=== PATIENT | female | born 2000 | race African-American/Black ===

== ENCOUNTER 2019-11-21 08:17 | Day surgery (SDC) | payer MEDICAID, SELFPAY ==
[2019-11-19 19:51] VITALS: BMI 34.9
--- NOTE | 2019-11-21 | FL_ITS ---
EXAMINATION: XR LUMBAR PUNCTURE CLINICAL INFORMATION: Headache. Evaluate for pseudotumor cerebri COMPARISON: None TECHNIQUE/findings: Procedure and risks and benefits including bleeding, infection and headache were discussed with the patient and informed consent was obtained. Patient was positioned in the prone position.. The back was prepped and draped in the usual sterile fashion. Skin and soft tissues of the left lower back was prepped and draped in the usual sterile fashion. Fluoroscopic guidance and a 22-gauge spinal needle, left-sided interlaminar access at the L2-L3 level was obtained. Opening pressure was 32.7 cm water. 14.5 mL of clear CSF fluid was removed. Closing pressure was 18 cm water. Diagnostic specimen was sent. FLUOROSCOPY TIME: 0.4 minutes DOSE AREA PRODUCT: 4.7 capps per centimeter squared. Total dose 20 mgy. 1 saved fluoroscopic image. IMPRESSION: Fluoroscopy-guided lumbar puncture. Elevated opening pressure of 32.7 cm of water.
[2019-11-21 09:00] VITALS: BP 115/67; PULSE 78; RESP 18; TEMP 36.1; O2SAT 98
[2019-11-21 10:15] LABS: MANUAL DIFF FLAG NO
[2019-11-21 10:22] LABS: Basophils Absolute Auto 0.1 X10*3/uL (0.0-0.2); Basophils Percent Auto 0.6 % (0-2); Eosinophils Absolute Auto 0.4 X10*3/uL (0.0-0.4); Eosinophils Percent Auto 5.1 % (0-4); Hematocrit 36.5 % (37-47); Hemoglobin 11.8 g/dl (12.0-16.0); Imm Gran Abs Auto 0.03 X10*3/uL (0.00-0.03); Imm Gran Pct Auto 0.3 % (0.0-0.4); Lymphocytes Absolute Auto 3.8 X10*3/uL (1.2-4.9); Lymphocytes Percent Auto 43.2 % (20-40); Mean Corpuscular HGB Conc 32.3 g/dl (31.0-35.0); Mean Corpuscular Hemoglobin 26.2 pg (27.0-33.0); Mean Corpuscular Volume 81.1 fL (80-98); Mean Platelet Volume 9.4 fL (9.4-12.3); Monocytes Absolute Auto 0.6 X10*3/uL (0.1-1.2); Monocytes Percent Auto 7.4 % (2-11); Neutrophils Absolute Auto 3.8 X10*3/uL (2.0-8.3); Neutrophils Percent Auto 43.4 % (45-73); Platelet Count 340 X10*3/uL (160-400); Red Cell Distribution Width 13.9 % (11.0-16.0); White Blood Count 8.7 X10*3/uL (4.8-10.8)
[2019-11-21 10:31] LABS: Partial Thromboplastin Time 35.9 SEC (24.1-38.0)
--- NOTE | 2019-11-21 12:37 | HO.RADPN ---
RADIOLOGY Narrative Narrative: LP performed using 22g spinal needle at L3/L4. Opening pressure 32.7 ml h2o. Closing pressure 18.5 cm h2o. 14.5 ml clear CSF removed.
[2019-11-21 12:45] VITALS: BP 116/77; PULSE 65; RESP 18; TEMP 36.9; O2SAT 98
[2019-11-21 13:15] VITALS: BP 109/69; PULSE 66; RESP 18; O2SAT 99
[2019-11-21 13:45] VITALS: BP 107/70; PULSE 76; RESP 18; O2SAT 100
[2019-11-21 13:56] LABS: Appearance CSF CLEAR; CSF Monos 0 %; CSF Other Cells % 0 %; CSF Tube # 3; CSF Volume 3.5 ML; Color CSF COLORLESS; Lymphocytes CSF 100 %; Neutrophils CSF 0 %; Red Blood Cell CSF 0 MM*3; White Blood Cell CSF 2 MM*3
[2019-11-21 13:58] LABS: Glucose CSF 61 mg/dL; Total Protein CSF 14.8 mg/dL (15-45)
[2019-11-21 13:59] LABS: Appearance CSF CLEAR; CSF Tube # 1
[2019-11-21 14:15] VITALS: BP 109/60; PULSE 80; RESP 16; O2SAT 100
[2019-11-21 14:46] VITALS: BP 108/63; PULSE 86; RESP 18; O2SAT 99
== END 2019-11-21 15:14 | disposition home or self-care (01) ==
PROVIDERS: Radiology Diagnostic Radiology; PCP Pediatrics; Visit Provider Psychiatry & Neurology Neurology
PROC: 009U3ZZ Drainage of Spinal Canal, Percutaneous Approach (ICD-10-PCS; CPT 62270; principal; 2019-11-21 10:00)
DX: G93.2 Benign intracranial hypertension (principal); J45.909 Unspecified asthma, uncomplicated; G25.0 Essential tremor; Z88.0 Allergy status to penicillin; Z79.899 Other long term (current) drug therapy
CPT/HCPCS: 36415; 62328; 82945; 84157; 85025; 85610; 85730; 87015; 87070; 87205; 89051

== ENCOUNTER 2025-02-04 03:51 | Emergency (ER) | payer OTHER, SELFPAY ==
--- OUTSIDE RECORDS SUMMARY | 2025-02-03 04:49 | XMS_ITS | Continuity of Care Document ---
Author Organization [facility] ter Address [address] [place] [id number]- Care Team Providers Care Waterproof Bag Sewer Name Role Phone Ben Garcia NP Primary Care Physician [phone] Encounter [facility] Date(s): 02/02/25 - 02/03/[address] [id number]- Discharge Disposition: A-D/C Walkout Attending Physician: Not on Staff, Attending MD Admitting Physician: Not on Staff, Admitting MD Referring Physician: Not on Staff, Referring MD Encounter Type: Disch ES Allergies, Adverse Reactions, Alerts Substance Criticality Severity Reaction Reaction Severity Status amoxicillin vomitting Rash Active penicillin Rash and vomitting Active Grass hives and itching Ac tive Other Environmental Allergy trees-hives and itching Active meloxicam Active Immunizations Given and Recorded Vaccine Date Status Refusal Reason tetanus/diphtheria/pertussis, acel(Tdap) 05/04/22 Given tetanus/diphtheria/pertussis, acel(Tdap) 09/08/10 Recorded Meningococcal Conjugate Vaccine 04/22/18 Recorded Meningococcal Conjugate Vaccine 09/08/10 Recorded influenza virus vaccine, inactivated 10/23/17 Kole rded influenza virus vaccine, inactivated 10/10/16 Kole rded influenza virus vaccine, inactivated 10/31/13 Kole rded Hepatitis A Pediatric Vaccine 10/23/17 Recorded Human Papillomavirus Vaccine 03/02/14 Recorded Human Papillomavirus Vaccine 10/31/13 Recorded Human Papillomavirus Vaccine 08/29/13 Recorded Varicella Virus Vaccine 07/12/09 Recorded Varicella Virus Vaccine 09/01/99 Recorded Poliovirus Vaccine, Inactivated 11/25/02 Recorded Poliovirus Vaccine, Inactivated 02/25/99 Recorded Measles/Mumps/Rubella Virus Vaccine 11/25/02 Recor ded Measles/Mumps/Rubella Virus Vaccine 09/01/99 Recor ded diphtheria/tetanus/pertussis, acel(DTaP) 11/25/02 Recorded diphtheria/tetanus/pertussis, acel(DTaP) 11/28/99 Recorded diphtheria/tetanus/pertussis, acel(DTaP) 02/25/99 Recorded diphtheria/tetanus/pertussis, acel(DTaP) 98 Recorded diphtheria/tetanus/pertussis, acel(DTaP) 98 Recorded hepatitis B pediatric vaccine 09/01/99 Recorded hepatitis B pediatric vaccine 05/13/99 Recorded hepatitis B pediatric vaccine 02/25/99 Recorded Medications Diflucan 150 mg oral tablet See Instructions, 1 tablet By Mouth Once x1, then repeat dose after complete antibiotics, # 2 tablet, 0 Refills, Soft Stop, 12/15/22 9:16:00 AM EST, Tablet, [facility] #[id number], Partial fill upon patient request if the prescription is for a schedule II opioid drug., 167.4, cm, 12/15/22 8:52:00 EST, Height, 95, kg, 11/20/22 14:49:00 EDT, Dry Weight Start Date: 12/15/22 Status: Ordered Medication Dispense Status: Completed Quantity: 2.0 Unit: tablet Total Allowed Fills: 1 Fills Dispensed: 0 Indications: Other specified noninflammatory disorders of vagina; multivitamin with iron Multiple Vitamins with Iron oral tablet 1 tablet, By Mouth, Daily, # 90 tablet, 1 Refills, Maintenance, 01/22/25 10:43:00 AM EST, Tablet, [facility] #[id number], Partial fill upon patient request if the prescription is for a schedule II opioid drug., 1 tablet By Mouth Daily,x90 days, 167.4, cm, 01/22/25 10:19:00 EST, Height Start Date: 01/22/25 Stop Date: 07/21/25 Status: Ordered Medication Dispense Status: Completed Quantity: 90.0 Unit: tablet Total Allowed Fills: 2 Fills Dispensed: 0 right patella stability brace right patella stability brace, See Instructions, # 1 each, Refills 0, Tot. Refills 0, Maintenance, ICD 10: M25.361 length of need 99+ months please fax to [email or web address] 01/22/25 12:28:00 PM EST, Supply Start Date: 01/22/25 Status: Ordered Medication Dispense Status: Completed Quantity: 1.0 Unit: each Total Allowed Fills: 1 Fills Dispensed: 0 Ventolin HFA 108 mcg/inh inhalation aerosol with adapter 1 puffs, Inhalation, Every 6 hours, PRN NEEDED FOR WHEEZING, # 18 Gm, 1 Refills, Maintenance, 12/21/23 12:02:00 PM EST, [facility] #[id number], 167.4, cm, 05/17/23 13:45:00 EDT, Height, 95, kg, 11/20/22 14:49:00 EDT, Dry Weight Start Date: 12/21/23 Status: Ordered Medication Dispense Status: Completed Quantity: 18.0 Unit: g Total Allowed Fills: 1 Fills Dispensed: 0 walker walker, See Instructions, # 1 each, Refills 0, Tot. Refills 0, Maintenance, DX: left knee pain, 07/12/21 3:53:00 PM EDT, Supply Start Date: 07/12/21 Status: Ordered Medication Dispense Status: Completed Quantity: 1.0 Unit: each Total Allowed Fills: 1 Fills Dispensed: 0 Mental Status Mental Status Assessment Assessment Assessment Component Result Effecti ve Date Bertha coma score total 15 Problem List Condition Confirmation Course Effective Dates Status Health St atus Informant Vaginal bleeding, abnormal Confirmed Active Back pain, chronic Confirmed Active Chronic tension type headache Confirmed Active Gastritis Confirmed Active Chronic GERD Confirmed Active Anemia, iron deficiency Confirmed Active Lipoma of back Confirmed Active Chronic pain of right knee Confirmed Active Severe obesity (BMI 35.0-39.9) with comorbidity Confirmed Active Umbilical pain Confirmed Active Vital Signs Most recent to oldest [Reference Range]: 1 2 Height 165 cm (02/02/25 11:15 PM) Weight 96.8 kg (02/02/25 11:15 PM) Oxygen Saturation [94-100 %] 100 % (02/02/25 11:15 PM) 97 % (02/02/25 1:41 PM) Pulse Rate [55-90 bpm] 84 bpm (02/02/25 11:15 PM) 80 bpm (02/02/25 1:41 PM) Body Mass Index [18.5-24.99 kg/m2] 35.56 kg/m2 *H* (02/02/25 11:15 PM) Blood Pressure [90-138/55-84 mm Hg] 115/ 77mm Hg (02/02/25 11:15 PM) 116/58mm Hg (02/02/25 1:41 PM) Respiratory Rate [16-30 br/min] 16 br/mi n (02/02/25 11:15 PM) 18 br/min (02/02/25 1:41 PM) Temperature [96.8-100.4 DegF] 98.4 DegF (02/02/25 11:15 PM) 98.7 DegF (02/02/25 1:41 PM) Mode of Delivery (Oxygen) Room air (02/02/25 11:15 PM) Room air (02/02/25 1:41 PM) Blood pressure sites Arm, left (02/02/25 11:15 PM) Arm, right (02/02/25 1:41 PM) Temperature Route Oral (02/02/25 11:15 PM) Oral (02/02/25 1:41 PM) Dry Weight 96.8 kg (02/02/25 11:15 PM) Weight Obtained Via Standing scale (02/02/25 11:15 PM) Dry Weight Obtained Via Standing scale (02/02/25 11:15 PM) Social History Social History Type Response Smoking Status Never (less than 100 in lifetime) entered on: 07/22/20 Sexual Orientation Self described orien tation: ; Lesbian, tom or homosexual Sex Sex Representation Female (finding) Status Not Patient Care team information Care Team Personnel Name: Ben Garcia NP Position: [facility] Associate Professional Member Role: PCP Address: [address] [place] [address] Telecom: Name: Jolene Marie RN Position: [facility] AMB Nurse Member Role: Primary Care Nurse Care Team Related Persons Name: WILLIAM PALMER Name: AXEL PALMER Insurance Providers Guarantor name: ASTRID PALMER Health Plan Information #: 1 Payer: [employer] Payer Identifier: NA Member Number: [id number] Group Number: NA Subscriber Identifier: [id number] Relationship to Subscriber: self Coverage Type: Self-pay (Includes applicants for insurance and Medicaid applicants) Coverage Verification Date: NA Telecom: NA Address: NA
--- NOTE | ~2025-02-04 | XR_ITS ---
CLINICAL HISTORY: fall 2 view right knee Comparison: None provided Findings: Bones intact. No dislocations. No significant arthritic change or erosions. No joint effusion. No radiopaque foreign body. IMPRESSION: 1. No acute findings. This document has been electronically signed by: Duong Yeung MD on 02/04/2025 05:44:53
[2025-02-04 04:04] VITALS: BP 117/59; PULSE 77; RESP 20; TEMP 36.7; O2SAT 99; BMI 37.1
--- NOTE | 2025-02-04 05:56 | ED.FALL ---
HPI - Fall General Chief Complaint: Fall Stated Complaint: fall Time Seen by Provider: 02/04/25 05:36 Source: patient and family (Aunt) Mode of arrival: ambulatory Limitations: no limitations History of Present Illness ED Provider: Dr. Stuart Juan HPI Narrative: 24-year-old female with a history of anemia, asthma, migraines, dislocation of her knees, arthritis of the knees uses a cane to ambulate who presents emergency department for evaluation of injuries from a slip and fall on icy stairs that occurred yesterday at around 08:00. She was seen at an urgent care, had x-rays of her right knee and back and were told that she had a dislocated knee and disc problem in her back. Patient states that she has had increased pain in her neck, back and lower extremities since the fall. The patient is able to ambulate using a cane without difficulty. She took ibuprofen 800 mg at 01:30 hours with a no relief of her pain. Related Data Home Medications ?Medication ?Instructions ?Recorded ?Confirmed albuterol sulfate 90 mcg/actuation 2 puff inhalation NEEDED 11/19/19 11/19/19 aerosol inhaler (ProAir HFA) linaclotide 72 mcg capsule 72 mcg PO DAILY 11/19/19 11/19/19 (Linzess) promethazine 12.5 mg tablet 12.5 mg PO Q4-6H PRN Nausea 11/19/19 11/19/19 Previous Rx's ?Medication ?Instructions ?Recorded acetaminophen 500 mg tablet 1,000 mg (2 x 500 mg) PO Q6H PRN 02/04/25 (Tylenol Extra Strength) pain #20 tabs ibuprofen 400 mg tablet 400 mg PO TID PRN fever or pain 02/04/25 #30 tabs oxycodone 5 mg tablet 5 mg PO Q6H PRN pain #10 tabs 02/04/25 Allergies Allergy/AdvReac Type Severity Reaction Status Date / Time amoxicillin Allergy Rash Verified 02/04/25 04:07 Review of Systems Review of Systems: Yes all other systems are reviewed and are negative [facility] Past Medical History Medical History (Updated 02/04/25 @ 06:21 by Stuart Juan MD) Colonoscopy planned Back pain Nausea Migraine Asthma Surgical History (Updated 11/19/19 @ 17:01 by Sherri Phillips RN) History of endoscopy (~2018) H/O umbilical hernia repair Social History Social History Advance Directives Date on File: 11/19/19 Physical Exam Vital Signs: Vital Signs: Last Vital Signs Temp 98.0 F 02/04/25 04:04 Pulse 77 02/04/25 04:04 Resp 20 02/04/25 04:04 BP 117/59 L 02/04/25 04:04 Pulse Ox 99 02/04/25 04:04 O2 Del Method Room Air 02/04/25 04:04 BMI result Body Mass Index 37.1 Vital signs were normal Exam: General: Awake, alert in no distress Head: Normocephalic, atraumatic EENT: PERRL, sclera and conjunctiva are normal, mouth with no erythema or exudates Neck: Supple, patient has tenderness palpation of her cervical vertebrae, trapezius muscles bilaterally, no difficulty with range of motion of her neck Lung: breath sounds symmetric, no wheezing, no rales and no rhonchi Chest: symmetric movement, mild tenderness palpation of her right lateral chest wall Heart: regular rate and rhythm, normal S1, S2 no murmurs or rubs Abdomen: soft, non-tender, nondistended, normal bowel sounds Back: no point vertebral tenderness but diffuse tenderness palpation of her vertebrae and muscles of her upper, mid and lower back with no spasm, no CVAT Extremities: no deformities, moves all extremities symmetrically, no edema, the patient is able to walk using her cane without any difficulty Neuro: Awake, alert, oriented, normal speech Psych: Pleasant, cooperative Medical Decision Making Medical Decision Making MDM Narrative: 24-year-old female with a history of anemia, asthma, migraines, dislocation of her knees, arthritis of the knees uses a cane to ambulate who presents emergency department for evaluation of injuries from a slip and fall on icy stairs that occurred yesterday at around 08:00. She was seen at an urgent care, had x-rays of her right knee and back and were told that she had a dislocated knee and disc problem in her back. Patient states that she has had increased pain in her neck, back and lower extremities since the fall. The patient is able to ambulate using a cane without difficulty. She took ibuprofen 800 mg at 01:30 hours with a no relief of her pain. Physical examination did reveal tenderness palpation of her neck, back diffusely, no difficulty with moving her lower extremities or walking with a cane. Differential diagnosis: ?Includes but is not limited to musculoskeletal injury, sprain, strain, right knee fracture Course: X-rays of the patient's right knee revealed no acute findings which is reassuring. Patient's presentation is consistent with musculoskeletal injury/contusion secondary to her fall. I did discuss this with the patient. I did tell her that often pain after a fall gets worse 2-3 days later and can last up to 2 weeks. Patient was prescribed ibuprofen 400 mg q.6 hours PRN, Tylenol 1000 mg q.6 hours PRN and for pain not relieved by these medications she was prescribed oxycodone 5 mg q.6 hours PRN. I told her that she can also take the cyclobenzaprine as prescribed by her urgent care provider. She was advised to apply ice for 15 minutes 4 to 6 times a day for the next 2-3 days to areas that were injured. She was given printed and verbal instructions and discharged home. Differential Diagnosis Differential Diagnoses: The differential diagnosis associated with the presentation includes (See above) Admission/Observation Consideration of admission/observation: Escalation of care including admission/observation considered (No) Radiology Impression Discussion of test interpretation with radiology: I have reviewed the radiologist's reading. Radiologist Impression: 2 view right knee Comparison: None provided Findings: Bones intact. No dislocations. No significant arthritic change or erosions. No joint effusion. No radiopaque foreign body. IMPRESSION: 1. No acute findings. This document has been electronically signed by: Duong Yeung MD on 02/04/2025 05:44:53 Independent Historian Clinical information obtained from an independent historian. History obtained from or confirmed by: Other (Aunt) Prescription Management I considered prescription management with: Pain Medication (I prescribed ibuprofen, Tylenol and oxycodone) Discharge Plan Discharge Clinical Impression: Fall, Fall from slipping on ice, Acute neck sprain, Back contusion, Knee pain, bilateral, Chest wall contusion Patient Disposition: Home, Self-Care Instructions: Contusion in Adults (ED) Additional Instructions: The x-ray of your knee did not reveal any broken bones or dislocations. Please see the radiology reading below. The pain that your experiencing is consistent with your fall. I do not think that you have any broken bones and your pain is caused by contusions (deep bruises) and soft tissue injuries (stretching of tendons and ligaments). It is reassuring that you can walk using your cane, suggesting that you do not have any broken bones in your neck, back or legs. Take ibuprofen 200 mg pills, 3 pills every 6 hours as needed for pain. Take Tylenol (acetaminophen) 500 mg pills, 2 pills every 4-6 hours as needed for pain. For pain not relieved by ibuprofen or Tylenol take oxycodone 5 mg pills, 1 pill every 4 hours as needed for pain. Do not drive or work while taking this medication since they can cause sleepiness. Oxycodone is a narcotic medication that can be addicting. If you are concerned about addiction you can ask the pharmacist for less pills or do not get this prescription filled. The urgent care clinic did prescribe cyclobenzaprine for you. Take this medication as prescribed and as written on the bottle. Apply ice for 15 minutes 4 to 6 times a day to areas that hurt. Do this for 2-3 days and this should reduce the inflammation in your injured areas. Follow-up with your doctor in 2 days. Please return to the emergency department if your symptoms get worse or if you develop any symptoms that are concerning to you. 2 view right knee Comparison: None provided Findings: Bones intact. No dislocations. No significant arthritic change or erosions. No joint effusion. No radiopaque foreign body. IMPRESSION: 1. No acute findings. This document has been electronically signed by: Duong Yeung MD on 02/04/2025 05:44:53 Prescriptions: New ibuprofen 400 mg tablet 400 mg PO TID PRN (Reason: fever or pain) Qty: 30 0RF oxycodone 5 mg tablet 5 mg PO Q6H PRN (Reason: pain) Qty: 10 0RF Rx Instructions: Partial Fill upon patient request. acetaminophen [Tylenol Extra Strength] 500 mg tablet 1,000 mg PO Q6H PRN (Reason: pain) Qty: 20 0RF No Action Linzess 72 mcg Capsule 72 mcg PO DAILY albuterol sulfate [ProAir HFA] 90 mcg/actuation Hfa Aerosol Inhaler 2 puff INHALATION NEEDED promethazine 12.5 mg Tablet 12.5 mg PO Q4-6H PRN (Reason: Nausea) Interventions: ED Discharge Assessment Last Done: 02/04/25 06:18 Discharge Date/Time: 02/04/25 06:20 Print Language: Faroese
--- OUTSIDE RECORDS SUMMARY | 2025-02-04 06:14 | XMS_ITS | Clinical Summary ---
Author Organization [facility] Address [address] [place] [id number] Phone Care Team Providers Care Wharf Hand Name Role Phone Unknown, Unknown Primary Care Provider Ciara infante Encounters Date Type Department Care Team Description 02/03/2025 Transcribe Orders [facility] [address] [place] [id number] Dallas Goncalves PA from Last 3 Months Social History Tobacco Use Types Packs/Day Years Used Date Smoking Tobacco: Never Assessed Education Answer Date Recorded Are you interested in more education? Not on aziza e 06/03/2022 Are you concerned about learning? Not on file 06/03/2022 No 06/03/2022 No 06/03/2022 Digital Access Answer Date Recorded No 07/02/2022 No 07/02/2022 No 07/02/2022 Reliable internet access at home? Not on file 07/02/2022 Device with a working camera? Not on file Comments Unknown Sex and Gender Information Value Date Recorded Sex Assigned at Not on file Legal Sex Female 1:14 PM EDT Gender Identity Not on file Sexual Orientation Not on file Plan of Treatment Health Maintenance Due Date Last Done Comments Adult Td,Tdap Booster 1998 DEPRESSION SCREENING 2010 SMOKING Hx and SMOKELESS TOB ACCO SCREENING 08/21/2011 HPV VACCINES (1 - 3-dose series) 2013 HEPATITIS C SCREENING 2016 HIV ONE-TIME SCREENING (18-6 5 YEARS) 2016 PAP SMEAR 08/21/2019 INFLUENZA VACCINE (#1) 2024 COVID-19 VACCINE (2024-2 6 season) 2024 HEPATITIS A VACCINES Aged Out No long er eligible based on patient's age to complete this topic HIB VACCINES Aged Out No longer eligi ble based on patient's age to complete this topic MENINGOCOCCAL VACCINES (ACWY) Aged Out No longer eligible based on patient's age to complete this topic MENINGOCOCCAL VACCINES (B) Aged Out N o longer eligible based on patient's age to complete this topic PNEUMOCOCCAL VACCINES (0-49 years) Aged Out No longer eligible based on patient's age to complete this topic Medical Devices Not on file Insurance [facility] [place] [place] [place] [facility] [place] [place] [facility] [place] Care Teams Wharf Hand Relationship Specialty Start Date End Date Unknown, Unknown, PCP - General 04/26/21 Additional Source Comments The information contained in this document represents components of the legal health record. It is not the complete legal health record.[facility]
--- OUTSIDE RECORDS SUMMARY | 2025-02-04 06:14 | XMS_ITS | Encounter Summary ---
Author Organization [facility] Address [address] [place] [id number] Phone Care Team Providers Care Manager Residential Name Role Phone Unknown, Unknown Primary Care Provider Ciara infante Reason for Referral * Consultation (Routine) - New Request Specialty Diagnoses / Procedures Referred By Prospre t Referred To Contact Dallas Goncalves PA [address] [place] [address] Phone: tel: fax: Referral ID Status Reason Start Date Expiration Date V isits Requested Visits Authorized New Request 02/03/2025 02/03/2026 1 1 Encounter Details Date Type Department Care Team (Late st Contact Info) Description 02/03/2025 Transcribe Orders [facility] [address] [place] [id number] Dallas Goncalves PA [address] [facility] [address] Social History Tobacco Use Types Packs/Day Years [...] on file Sexual Orientation Not on file documented as of this encounter Plan of Treatment Scheduled Referrals Name Type Priority Associated Diagnoses Order Schedule Ambulatory referral to [facility] Outpatient Referral Routine Ordered: 02/03/2025 documented as of this encounter Visit Diagnoses Not on filedocumented in this encounter Care Teams Manager Residential Relationship Specialty Start Date End Date Unknown, Unknown, MD PCP - General 04/26/21 documented as of this encounter Additional Source Comments The information contained in this document represents components of the legal health record. It is not the complete legal health record.[facility]
[2025-02-04 06:16] VITALS: BP 112/69; PULSE 84; RESP 16; O2SAT 100
[2025-02-04 06:18] VITALS: BP 112/69; PULSE 84; RESP 16; TEMP 36.6; O2SAT 100
== END 2025-02-04 06:20 | disposition home or self-care (01) ==
LOC: HO.ED 06:11
PROVIDERS: Emergency Provider Emergency Medicine Emergency Medical Services; PCP Pediatrics
DX: S13.9XXA Sprain of joints and ligaments of unspecified parts of neck, initial encounter (principal); S20.219A Contusion of unspecified front wall of thorax, initial encounter; S30.0XXA Contusion of lower back and pelvis, initial encounter; M17.0 Bilateral primary osteoarthritis of knee; W00.1XXA Fall from stairs and steps due to ice and snow, initial encounter; Y93.89 Activity, other specified; Y92.89 Other specified places as the place of occurrence of the external cause; Y99.8 Other external cause status
CPT/HCPCS: 73560; 99282

== ENCOUNTER → 2025-02-04 04:23 | Outpatient (BNV) | payer OTHER, SELFPAY | PROVIDERS: Emergency Provider Emergency Medicine Emergency Medical Services; PCP Pediatrics; Visit Provider Radiology Diagnostic Radiology | DX: M25.561 Pain in right knee (principal) | CPT/HCPCS: 73560 ==